=== PATIENT | male | born 1960 | race Asian ===

== ENCOUNTER 2017-10-01 07:09 | Emergency (ER) | payer BC, OTHER ==
--- NOTE | 2017-10-01 07:51 | Emergency Department Report ---
HPI - General Chief Complaint: Seizure Time Seen by Provider: 10/01/17 07:40 - HPI HPI: This is a 57-year-old -[place] male who presents to the emergency department by EMS from home after he appears to have had a seizure this morning. The patient was found sitting on the floor, confused, with some beer bottles surrounding him. The patient is now currently awake and alert and says that he did have some drinks yesterday, and says that he has been drinking over the past few days in a row, but denies any history of alcoholism or alcohol dependence. He says that he does have a history of seizures and was diagnosed some type of antiepileptic medication in the past, but says that he has not had a seizure in a couple of years and therefore stopped taking those meds. He also has a history of [id number] diabetes and says he has been trying to wean himself off the metformin. He does not currently have a primary care physician. Currently he denies any physical complaints. He denies any illicit drug use. He did not receive anything for her symptoms prior to presentation or in route. ED Past Medical Hx - Past Medical History Previous Medical History?: Yes Hx Hypertension: Yes Hx Diabetes: Yes Hx Seizures: Yes Hx HIV: No - Surgical History Past Surgical History?: No - Social History Smoking Status: Never Smoker Substance Use Type: Alcohol - Medications Home Medications: Home Medications Medication Instructions Recorded Confirmed Last Taken Type levETIRAcetam [Keppra TAB] 500 mg PO BID #60 tablet 10/01/17 Unknown Rx metFORMIN [Glucophage] 500 mg PO BID #60 tablet 10/01/17 Unknown Rx ED Review of Systems ROS: Stated complaint: ETOH Other details as noted in HPI Comment: All other systems reviewed and negative Constitutional: denies: chills, fever Eyes: denies: eye pain, eye discharge, vision change ENT: denies: ear pain, throat pain Respiratory: denies: cough, shortness of breath, wheezing Cardiovascular: denies: chest pain, palpitations Gastrointestinal: denies: abdominal pain, nausea, diarrhea Genitourinary: denies: urgency, dysuria Musculoskeletal: denies: back pain, joint swelling, arthralgia Skin: denies: rash, lesions Neurological: other (seizure). denies: headache Physical Exam - Physical Exam Vital Signs: Vital Signs 10/01/17 07:27 Temperature 98.9 F Pulse Rate 143 H Respiratory 16 Rate Blood Pressure 157/97 O2 Sat by Pulse 93 Oximetry Physical Exam: GENERAL: The patient is well-developed well-nourished. HENT: Normocephalic. Atraumatic. Patient has moist mucous membranes. Oropharynx clear. EYES: Extraocular motions are intact. Pupils equal reactive to light bilaterally. NECK: Supple. Trachea is midline. CHEST/LUNGS: Clear to auscultation. There is no respiratory distress noted. HEART/CARDIOVASCULAR: Regular. There is moderate tachycardia. There is no murmur. ABDOMEN: Abdomen is soft, nontender. Patient has normal bowel sounds. There is no abdominal distention. SKIN: Skin is warm and dry. NEURO: The patient is awake, alert, and oriented. The patient is cooperative. The patient has no focal neurologic deficits. The patient has normal speech. Cranial nerves II through XII grossly intact. No pronator drift. No dysmetria. MUSCULOSKELETAL: There is no tenderness or deformity. There is no limitation range of motion. There is no evidence of acute injury. ED Course Vital Signs 10/01/17 07:27 Temperature 98.9 F Pulse Rate 143 H Respiratory 16 Rate Blood Pressure 157/97 O2 Sat by Pulse 93 Oximetry - Consultations Consultation #1: I spoke with Dr. Ragsdale at [place]. At first we were going to consider sending him to a [place] facility due to his continued tachycardia. However he has now had a negative CT head and a CT angiography that does not show any pulmonary embolism. His heart rate has come down and is close to 100. There has been no further seizure-like activity. Rest of vitals are stable. He has some hyperglycemia but does not appear to be in diabetic ketoacidosis. He appears safe for discharge home at this time. He will be restarted on his metformin and his [facility] and [place] will contact him to set him up for a neurology appointment within the next week. 10/01/17 16:04 ED Medical Decision Making - Lab Data Result diagrams: 10/01/17 07:48 10/01/17 07:48 - EKG Data -: EKG Interpreted by Me EKG shows normal: sinus rhythm, axis, intervals, QRS complexes (Q waves to the septal leads), ST-T waves Rate: tachycardia (140 bpm) - EKG Data When compared to previous EKG there are: previous EKG unavailable Interpretation: other (sinus tachycardia, Q waves to the septal leads) - Radiology Data Radiology results: report reviewed EXAM: CT HEAD/BRAIN WO CON HISTORY: Syncope, seizure TECHNIQUE: CT of the head was performed. No intravenous contrast was administered. PRIORS: None. FINDINGS: There is no evidence of intracranial hemorrhage. There is no edema, mass effect or midline shift. There are no abnormal extra-axial fluid collections. The ventricles are appropriate for brain volume. There is no skull fracture seen. The visualized aspects of the sinuses are clear. IMPRESSION: There is no acute intracranial abnormality identified. Transcribed By: DRAGAN Dictated By: SALMA TENA MD Electronically Authenticated By: SALMA TENA MD Signed Date/Time: 10/01/17 1113 EXAM: CT ANGIO CHEST HISTORY: Syncope, elevated dimer TECHNIQUE: CTA of the chest was performed after the administration of intravenous contrast. Coronal and sagittal reconstructions were included. Rotating MIPS were also included. PRIORS: None. FINDINGS: Pulmonary arteries and thoracic aorta: The study is adequate for diagnostic purposes. No central or segmental pulmonary embolism. The thoracic aorta is normal in caliber. Lungs and airways: No pleural effusion. No airspace consolidation. The airways are patent. Multifocal bronchiectasis is seen. Several subpleural blebs are seen in the lung apices. Subpleural reticular markings are seen throughout the lungs. Linear bands are seen within upper lobes concerning for scarring. No pulmonary nodules or masses. Mediastinum, heart, pericardium: Several prominent mediastinal lymph nodes are seen. Right paratracheal lymph node measures 2.0 x 1.2 centimeters. Several prominent right hilar lymph nodes are also seen. No cardiac chamber enlargement. No pericardial effusion. Thoracic inlet, chest wall, axilla: No chest wall masses. The visualized portions of the thyroid gland demonstrate no focal lesion. No axillary lymphadenopathy. Upper abdomen: Large nonobstructing calculus is seen in the upper pole of the right kidney measuring 1.7 centimeters. 5 millimeter calculus is seen in the interpolar region of the right kidney. A nonspecific low-attenuation 1.5 centimeter lesion is seen projecting off the superior pole of the right kidney. The liver is diffusely low in attenuation consistent with steatosis. Small hiatal hernia is seen. Colonic diverticulosis is seen. Bones: Several old bilateral rib fractures are seen. Degenerative changes are seen in the spine. IMPRESSION: 1. No central or segmental pulmonary embolism. 2. Pulmonary findings most likely represent chronic interstitial fibrosis with areas of scarring in the upper lobes, subpleural blebs and bronchiectasis. 3. Several prominent mediastinal lymph nodes are likely reactive. 4. Nonspecific right superior pole renal lesion. Recommend further evaluation with dedicated renal CT or MRI to further characterize this lesion. 5. Nonobstructing right nephrolithiasis. 6. Hepatic steatosis. - Medical Decision Making The patient presents originally after a seizure or an unresponsive episode but he is awake and alert by the time he got into the emergency department. He does have a history of seizures and has been noncompliant with the medication. He also has a history of diabetes with medication noncompliance. Patient's labs were grossly unremarkable except for some hyperglycemia. The patient does not appear to have diabetic ketoacidosis. The patient was reevaluated multiple times for multiple hours and remained awake and alert without any further seizure-like activity. However he continued to have some sustained tachycardia and for this reason I was going to send him to a [place] facility as he has [place] insurance and I felt needed at least an observational stay. At that time they asked for the patient to have a CT of the head and CT angiography of the chest. Both of these were done. CT of the head was completely normal. CT angiography of the chest did not show any pulmonary embolism had some incidental findings including some fibrosis, lymphadenopathy and hepatic steatosis. After these imaging tests were done, the patient was once again reevaluated and his heart rate had almost completely normalized. The rest the vital signs have been stable throughout his ED course. Since the patient has been awake and alert, in no acute distress, and now the vital signs are improved , he did not appear to need transfer at this time. The incidental findings of CT angiography were discussed with the patient. [place] says they will be arranging primary care and neurology follow-up within the next week for this patient. He will return to the ER with any worsening of symptoms or any acute distress. He was restarted on Keppra and metformin. - Differential Diagnosis seizure, TIA, PE, substance abuse Critical Care Time: No Critical care attestation.: If time is entered above; I have spent that time in minutes in the direct care of this critically ill patient, excluding procedure time. ED Disposition Clinical Impression: Seizure-like activity, Hyperglycemia HTN (hypertension) Qualifiers: Hypertension type: essential hypertension Qualified Code(s): I10 - Essential ( primary) hypertension Disposition: DC-01 TO HOME OR SELFCARE Is pt being admited?: No Condition: Stable Instructions: Hypertension (ED), Recurrent Seizures Adult (ED), Diabetic Hyperglycemia (ED) Additional Instructions: Please contact [place] for a referral for primary care and for neurology. You have been started on Keppra secondary to a history of seizures. Please avoid any further alcohol use as it can lower your seizure threshold. I have restarted U on metformin to be taken twice daily. Make sure you do not skip any meals but try and stay away from foods that are high in sugar, starches and carbohydrates. Keep a blood sugar log. Return to the emergency Department with any worsening of your symptoms or any acute distress. Prescriptions: levETIRAcetam [Keppra TAB] 500 mg PO BID #60 tablet metFORMIN [Glucophage] 500 mg PO BID #60 tablet Referrals: EDWIGE MARTIN MD [Primary Care Provider] - 3-5 Days JULEE CARLOS MD [Staff Physician] - 3-5 Days [facility] [Outside] - 3-5 Days Forms: Work/School Release Form(ED) Time of Disposition: 16:00
[2017-10-01] MEDS ORDERED: NACL 0.9% 1000 ML 1,000 ML IV ONE ×2 (08:03→10:14)
[2017-10-01] MEDS ORDERED: KEPPRA 1,000 MG/NS 0.75% 100ML 1,000 MG/100 ML BAG IV ONE (08:04)
[2017-10-01 08:07] LABS: Basophils % (Auto) 0.5 % (0.0-1.8); Eosinophils % (Auto) 0.5 % (0.0-4.3); Hematocrit 42.5 % (35.5-45.6); Hemoglobin 14.7 gm/dl (11.8-15.2); Mean Corpuscular HGB Conc 35 % (32-34); Mean Corpuscular Hemoglobin 32 pg (28-32); Mean Corpuscular Volume 93 fl (84-94); Platelet Count 167 K/mm3 (140-440); Red Blood Count 4.57 M/mm3 (3.65-5.03); Red Cell Distribution Width 12.6 % (13.2-15.2); White Blood Count 8.8 K/mm3 (4.5-11.0)
[2017-10-01 08:19] LABS: Anion Gap 28 mmol/L; BUN/Creatinine Ratio 15; Blood Urea Nitrogen 17 mg/dL (9-20); Calcium 9.4 mg/dL (8.4-10.2); Carbon Dioxide 18 mmol/L (22-30); Chloride 93.6 mmol/L (98-107); Glucose 280 mg/dL (75-100); Potassium 3.8 mmol/L (3.6-5.0); Sodium 136 mmol/L (137-145)
[2017-10-01 08:23] LABS: Alanine Aminotransferase 37 units/L (7-56); Albumin 4.2 g/dL (3.9-5); Albumin/Globulin Ratio 1.1 %; Alkaline Phosphatase 72 units/L (35-129); Bilirubin,Direct 0.2 mg/dL (0-0.2); Bilirubin,Indirect 0.6 mg/dL; Total Protein 8.1 g/dL (6.3-8.2)
[2017-10-01 09:58] LABS: Urine Drugs of Abuse Note Disclamer
[2017-10-01 10:08] LABS: Bilirubin,Urine NEG (Negative); Blood,Urine LG (Negative); Ketones,Urine TR mg/dL (Negative); Leukocyte Esterase,Urine NEG (Negative); Nitrite,Urine NEG (Negative); Urobilinogen,Urine < 2.0 mg/dL (<2.0)
[2017-10-01] MEDS ORDERED: THERAGRAN Tab PO ONE (10:14)
--- NOTE | 2017-10-01 15:17 | Cat Scan Report ---
FINAL REPORT EXAM: CT HEAD/BRAIN WO CON HISTORY: Syncope, seizure TECHNIQUE: CT of the head was performed. No intravenous contrast was administered. PRIORS: None. FINDINGS: There is no evidence of intracranial hemorrhage. There is no edema, mass effect or midline shift. There are no abnormal extra-axial fluid collections. The ventricles are appropriate for brain volume. There is no skull fracture seen. The visualized aspects of the sinuses are clear. IMPRESSION: There is no acute intracranial abnormality identified.
[2017-10-01 15:18] VITALS: BP 156/98
--- NOTE | 2017-10-01 15:59 | Cat Scan Report ---
FINAL REPORT EXAM: CT ANGIO CHEST HISTORY: Syncope, elevated dimer TECHNIQUE: CTA of the chest was performed after the administration of intravenous contrast. Coronal and sagittal reconstructions were included. Rotating MIPS were also included. PRIORS: None. FINDINGS: Pulmonary arteries and thoracic aorta: The study is adequate for diagnostic purposes. No central or segmental pulmonary embolism. The thoracic aorta is normal in caliber. Lungs and airways: No pleural effusion. No airspace consolidation. The airways are patent. Multifocal bronchiectasis is seen. Several subpleural blebs are seen in the lung apices. Subpleural reticular markings are seen throughout the lungs. Linear bands are seen within upper lobes concerning for scarring. No pulmonary nodules or masses. Mediastinum, heart, pericardium: Several prominent mediastinal lymph nodes are seen. Right paratracheal lymph node measures 2.0 x 1.2 centimeters. Several prominent right hilar lymph nodes are also seen. No cardiac chamber enlargement. No pericardial effusion. Thoracic inlet, chest wall, axilla: No chest wall masses. The visualized portions of the thyroid gland demonstrate no focal lesion. No axillary lymphadenopathy. Upper abdomen: Large nonobstructing calculus is seen in the upper pole of the right kidney measuring 1.7 centimeters. 5 millimeter calculus is seen in the interpolar region of the right kidney. A nonspecific low-attenuation 1.5 centimeter lesion is seen projecting off the superior pole of the right kidney. The liver is diffusely low in attenuation consistent with steatosis. Small hiatal hernia is seen. Colonic diverticulosis is seen. Bones: Several old bilateral rib fractures are seen. Degenerative changes are seen in the spine. IMPRESSION: 1. No central or segmental pulmonary embolism. 2. Pulmonary findings most likely represent chronic interstitial fibrosis with areas of scarring in the upper lobes, subpleural blebs and bronchiectasis. 3. Several prominent mediastinal lymph nodes are likely reactive. 4. Nonspecific right superior pole renal lesion. Recommend further evaluation with dedicated renal CT or MRI to further characterize this lesion. 5. Nonobstructing right nephrolithiasis. 6. Hepatic steatosis.
== END 2017-10-01 16:21 | disposition home or self-care (01) ==
LOC: ED 07:09
DX: R56.9 Unspecified convulsions (principal); I10 Essential (primary) hypertension; E11.65 Type 2 diabetes mellitus with hyperglycemia
CPT/HCPCS: 36415; 70450; 71275; 80048; 80074; 80307; 81001; 82805; 82962; 84443; 84484; 85025; 85379; 93005; 93010; 96361; 96374; 99285; G0480; J1953; J7030; Q9967; 80320